=== PATIENT | female | born 1975 | race Caucasian/White ===

== ENCOUNTER 2021-12-29 15:20 | Outpatient (CLI) | payer BC | END 2021-12-29 15:21 | disposition home or self-care (01) | LOC: CSHMAMMO 15:20 | PROVIDERS: ATTEND Obstetrics & Gynecology | DX: Z12.31 Encounter for screening mammogram for malignant neoplasm of breast (principal) | CPT/HCPCS: 77063; 77067 ==

== ENCOUNTER 2023-01-21 08:43 | Outpatient (CLI) | payer OTHER | END 2023-01-21 08:44 | disposition home or self-care (01) | LOC: CSHMAMMO 08:43 | PROVIDERS: ATTEND Obstetrics & Gynecology | DX: Z12.31 Encounter for screening mammogram for malignant neoplasm of breast (principal) | CPT/HCPCS: 77063; 77067 ==